=== PATIENT | female | born 1985 | race Two or more races ===

== ENCOUNTER 2019-02-09 22:31 | Emergency (ER) | payer MEDICAID ==
[~2019-02-09] VITALS: Ht 165.1 cm; Wt 62.6 kg
[2019-02-09 22:57] VITALS: BP 125/95
== END 2019-02-10 00:45 | disposition home or self-care (01) ==
LOC: ER 22:43
DX: S39.012A Strain of muscle, fascia and tendon of lower back, initial encounter (principal); S00.83XA Contusion of other part of head, initial encounter; J32.9 Chronic sinusitis, unspecified; V49.59XA Passenger injured in collision with other motor vehicles in traffic accident, initial encounter; Y93.89 Activity, other specified; Y92.481 Parking lot as the place of occurrence of the external cause; Y99.8 Other external cause status
CPT/HCPCS: 70486-TC; 72110-TC